=== PATIENT | female | born 1985 | race Caucasian/White ===

== ENCOUNTER 2018-12-25 17:28 | Emergency (ER) | payer OTHER ==
[~2018-12-25] VITALS: Ht 165.1 cm; Wt 93.0 kg
== END 2018-12-25 18:07 | disposition home or self-care (01) ==
LOC: ER 17:28
DX: S06.9X0A Unspecified intracranial injury without loss of consciousness, initial encounter (principal); W22.8XXA Striking against or struck by other objects, initial encounter
CPT/HCPCS: 99283

== ENCOUNTER 2019-02-15 09:53 | Emergency (ER) | payer OTHER ==
[~2019-02-15] VITALS: Ht 165.1 cm; Wt 93.0 kg
[2019-02-15] MEDS ORDERED: CYCL10 PO (10:40)
[2019-02-15] MEDS ORDERED: Ultram50 MG PO (10:40)
== END 2019-02-15 11:12 | disposition home or self-care (01) ==
LOC: ER 09:53
DX: G89.29 Other chronic pain (principal); M54.5 Low back pain; F17.200 Nicotine dependence, unspecified, uncomplicated
CPT/HCPCS: 96372; 99283-25; J1885

== ENCOUNTER 2019-05-07 15:23 | Emergency (ER) | payer OTHER ==
[~2019-05-07] VITALS: Ht 165.1 cm; Wt 91.6 kg
[~2019-05-07 15:23] MED LIST: CYCL10 PO; Ultram50 MG PO
[2019-05-07] MEDS ORDERED: Mobic15 MG PO (16:05)
[2019-05-07] MEDS ORDERED: OMEPRAZOLE20 MG (16:05)
[2019-05-07] MEDS ORDERED: Amoxicillin500 MG PO (16:40)
[2019-05-07] MEDS ORDERED: Norco 5-325 Ta1 EACH PO (16:40)
== END 2019-05-07 17:08 | disposition home or self-care (01) ==
LOC: ER 15:23
DX: K04.7 Periapical abscess without sinus (principal); K21.9 Gastro-esophageal reflux disease without esophagitis; F17.200 Nicotine dependence, unspecified, uncomplicated
CPT/HCPCS: 99282

== ENCOUNTER → 2020-09-19 | Outpatient (CLI) | payer OTHER ==
[~2020-09-19] MED LIST changes: +Amoxicillin500 MG PO; +Mobic15 MG PO; +Norco 5-325 Ta1 EACH PO; +OMEPRAZOLE20 MG
[2020-09-19 14:02] LABS: Candida species (DNA Probe) Negative (NEGATIVE); G. vaginalis (DNA Probe) Positive (NEGATIVE); T. vaginalis (DNA Probe) Negative (NEGATIVE)
== END | disposition home or self-care (01) ==
LOC: LAB SHORT 10:42
PROVIDERS: Family Medicine
DX: B37.3 Candidiasis of vulva and vagina (principal)
CPT/HCPCS: 87480; 87510; 87660

== ENCOUNTER 2020-11-30 13:31 | Emergency (ER) | payer OTHER ==
[~2020-11-30] VITALS: Ht 165.1 cm; Wt 91.6 kg
== END 2020-11-30 15:30 | disposition home or self-care (01) ==
LOC: ER 13:31
DX: M54.5 Low back pain (principal); G89.29 Other chronic pain; F17.210 Nicotine dependence, cigarettes, uncomplicated; Z79.899 Other long term (current) drug therapy
CPT/HCPCS: 96372; 99283-25; J1885

== ENCOUNTER → 2021-01-23 | Outpatient (CLI) | payer OTHER | END | disposition home or self-care (01) | LOC: LAB SHORT 13:39 → LAB 13:39 | DX: N85.8 Other specified noninflammatory disorders of uterus (principal) | CPT/HCPCS: 88305 ==

== ENCOUNTER → 2021-01-23 | Outpatient (CLI) | payer OTHER ==
[2021-01-27 08:09] LABS: CHLAMYDIA TRACHOMATIS, NAA Negative (Negative); HPV 16 Negative (Negative); HPV 18 Negative (Negative); HPV OTHER HR TYPES Negative (Negative)
== END ==
LOC: LAB 08:53 → LAB SHORT 08:53
PROVIDERS: Obstetrics & Gynecology
DX: Z01.419 Encounter for gynecological examination (general) (routine) without abnormal findings (principal); N92.0 Excessive and frequent menstruation with regular cycle
CPT/HCPCS: 87491; 87591; 87624; G0123

== ENCOUNTER 2021-10-26 12:34 | Emergency (ER) | payer OTHER ==
[~2021-10-26] VITALS: Ht 165.1 cm; Wt 81.7 kg
[2021-10-26 14:26] LABS: BASOPHILS ABSOLUTE AUTO 0.02 K/mm3 (0.00-0.23); BASOPHILS PERCENT AUTO 1 % (0-2); EOSINOPHILS PERCENT AUTO 0 % (0-6); Hematocrit 35.3 % (33.0-51.0); Hemoglobin 12.1 g/dL (11.5-16.0); IMMATURE GRAN ABSOLUTE AUTO 0.01 K/mm3 (0.00-0.10); IMMATURE GRAN PERCENT AUTO 0 % (0-1); LYMPHOCYTES ABSOLUTE AUTO 0.27 K/mm3 (0.84-5.20); LYMPHOCYTES PERCENT AUTO 10 % (21-46); MONOCYTES ABSOLUTE AUTO 0.47 K/mm3 (0.16-1.47); MONOCYTES PERCENT AUTO 17 % (4-13); Mean Corpuscular HGB 29.5 pg (26.0-34.0); Mean Corpuscular HGB Conc 34.3 g/dL (31.5-36.5); Mean Corpuscular Volume 86 fL (80-100); Mean Platelet Volume 10.8 fL (9.1-12.4); NEUTROPHILS ABSOLUTE AUTO 1.93 K/mm3 (1.96-9.15); NEUTROPHILS PERCENT AUTO 72 % (41-73); Platelet Count 186 K/mm3 (150-400); RDW Standard Deviation 37.9 fL (35.1-46.3)
[2021-10-26 14:48] LABS: Albumin, Blood 3.4 g/dL (3.4-5.0); Albumin/Globulin Ratio 1.2 (0.8-1.8); Bilirubin, Total 0.2 mg/dL (0.1-1.0); Bun/Creatinine Ratio 9.9 (12.0-20.0); Calcium, Blood 8.3 mg/dL (8.5-10.1); Creatinine, Blood 0.81 mg/dL (0.40-1.00); Globulin, Blood 2.8 g/dL (2.2-4.0); Potassium, Blood 3.4 mmol/L (3.5-5.5); Total Protein, Blood 6.2 g/dL (6.4-8.2)
[2021-10-26 14:58] LABS: Source, Urine Straight Cath
[2021-10-26 15:04] LABS: Appearance, Urine Clear (Clear); Bilirubin, Urine Neg (Neg); Blood, Urine Neg (Neg); Color, Urine Yellow (P-Yellow); Glucose Qualitative, Urine Neg (Neg); Ketones, Urine Neg (Neg); Leukocyte Esterase, Urine Neg (Neg); Nitrite, Urine Neg (Neg); Protein, Urine Neg (Neg); Urobilinogen, Urine NORM (Normal)
[2021-10-26 15:05] LABS: Influenza A, PCR NEGATIVE (NEGATIVE); Influenza B, PCR NEGATIVE (NEGATIVE); Resp Syncytial Virus, PCR NEGATIVE (NEGATIVE)
[2021-10-26 15:06] LABS: SARS-Cov-2 (COVID-19) PCR, MMC POSITIVE (NEGATIVE)
== END 2021-10-26 15:50 | disposition home or self-care (01) ==
LOC: ER 12:34
PROVIDERS: Student in an Organized Health Care Education/Training Program
DX: U07.1 COVID-19 (principal); E87.6 Hypokalemia; R25.2 Cramp and spasm; K21.9 Gastro-esophageal reflux disease without esophagitis; J45.909 Unspecified asthma, uncomplicated; Z79.899 Other long term (current) drug therapy; Z91.09 Other allergy status, other than to drugs and biological substances
CPT/HCPCS: 0241U; 80053; 81003; 81025; 85025; J0780; J1200; J1885; J3475; J7030

== ENCOUNTER 2022-01-02 04:43 | Emergency (ER) | payer OTHER ==
[~2022-01-02] VITALS: Ht 162.6 cm; Wt 83.9 kg
== END 2022-01-02 08:00 | disposition home or self-care (01) ==
LOC: ER 04:43
DX: S61.412A Laceration without foreign body of left hand, initial encounter (principal); K21.9 Gastro-esophageal reflux disease without esophagitis; Z91.09 Other allergy status, other than to drugs and biological substances; W26.0XXA Contact with knife, initial encounter
CPT/HCPCS: 12001; 99282-25

== ENCOUNTER 2023-09-10 10:18 | Day surgery (SDC) | payer OTHER ==
[~2023-09-10] VITALS: Ht 165.1 cm; Wt 99.8 kg
[~2023-09-10 10:18] MED LIST changes: +ALBU90OI INH; +AVIANE-28 TABL1 EACH PO; +Celexa20 MG PO; +FLUT1DIS2 INH; +IBUP800 PO; -OMEPRAZOLE20 MG; +OMEPRAZOLE20 MG PO; +Ropivacaine 0.5% HCl/Pf 5 MG/ML 20ML VIAL ONE
[2023-09-10] MEDS ORDERED: AVIANE-28 TABL1 EACH (11:16)
[2023-09-10] MEDS ORDERED: FentaNYL Citrate 50 MCG/ML 2 ML Injection ONE ×2 (11:29→13:02)
[2023-09-10] MEDS ORDERED: Midazolam HCl 1MG / ML 2ML Vial ONE (11:30)
[2023-09-10] MEDS ORDERED: Lactated Ringer's 1,000 ML IV ONE ×2 (11:35→13:57)
[2023-09-10] MEDS ORDERED: CeFAZolin Sodium 2,000 MG VIAL ONE (11:40)
[2023-09-10] MEDS ORDERED: NS 50 ML IV ONE (11:40)
[2023-09-10 13:17] VITALS: BP 111/71
== END 2023-09-10 13:28 | disposition home or self-care (01) ==
LOC: ORSCSDS 10:18
PROVIDERS: Orthopaedic Surgery
PROC: 0LB40ZZ Excision of Left Upper Arm Tendon, Open Approach (ICD-10-PCS; principal; 2023-09-10 11:30)
DX: M67.441 Ganglion, right hand (principal); J45.909 Unspecified asthma, uncomplicated; E66.9 Obesity, unspecified; Z68.36 Body mass index [BMI] 36.0-36.9, adult; Z87.891 Personal history of nicotine dependence; Z79.899 Other long term (current) drug therapy
CPT/HCPCS: 88304; J0690; J2250; J2795; J3010; J7120

== ENCOUNTER → 2023-10-10 | Outpatient (CLI) | payer OTHER ==
[~2023-10-10] MED LIST changes: +AVIANE-28 TABL1 EACH; -Ropivacaine 0.5% HCl/Pf 5 MG/ML 20ML VIAL ONE
[2023-10-10 18:47] LABS: BASOPHILS ABSOLUTE AUTO 0.07 K/mm3 (0.00-0.23); BASOPHILS PERCENT AUTO 1 % (0-2); EOSINOPHILS ABSOLUTE AUTO 0.03 K/mm3 (0.00-0.68); EOSINOPHILS PERCENT AUTO 0 % (0-6); Hematocrit 39.6 % (33.0-51.0); Hemoglobin 12.8 g/dL (11.5-16.0); IMMATURE GRAN ABSOLUTE AUTO 0.02 K/mm3 (0.00-0.10); IMMATURE GRAN PERCENT AUTO 0 % (0-1); LYMPHOCYTES ABSOLUTE AUTO 3.26 K/mm3 (0.84-5.20); LYMPHOCYTES PERCENT AUTO 33 % (21-46); MONOCYTES ABSOLUTE AUTO 0.95 K/mm3 (0.16-1.47); MONOCYTES PERCENT AUTO 10 % (4-13); Mean Corpuscular HGB 26.8 pg (26.0-34.0); Mean Corpuscular HGB Conc 32.3 g/dL (31.5-36.5); Mean Corpuscular Volume 83 fL (80-100); Mean Platelet Volume 10.4 fL (9.1-12.4); NEUTROPHILS ABSOLUTE AUTO 5.48 K/mm3 (1.96-9.15); NEUTROPHILS PERCENT AUTO 56 % (41-73); Platelet Count 293 K/mm3 (150-400); RDW Coefficient Variation 12.9 % (11.7-14.2); RDW Standard Deviation 39.2 fL (35.1-46.3); Red Blood Cell Count 4.78 M/mm3 (3.80-5.20); White Blood Cell Count 9.81 K/mm3 (4.00-11.30)
== END | disposition home or self-care (01) ==
LOC: LAB SHORT 16:38 → LAB 16:38
PROVIDERS: Physician Assistant
DX: M79.644 Pain in right finger(s) (principal)
CPT/HCPCS: 85025

== ENCOUNTER → 2024-03-21 | Outpatient (CLI) | payer OTHER ==
[2024-03-22 13:20] LABS: Candida glabrata-krusei, PCR NOT DETECTED (NOT DETECT)
[2024-03-22 13:51] LABS: Bacterial Vaginosis PCR Positive (NEGATIVE); Candida Group, PCR DETECTED (NOT DETECT)
== END ==
LOC: LAB SHORT 11:08 → LAB 11:08
PROVIDERS: Physician Assistant
DX: N89.8 Other specified noninflammatory disorders of vagina (principal)
CPT/HCPCS: 87481; 87661; 87801

== ENCOUNTER 2024-07-27 00:16 | Emergency (ER) | payer OTHER ==
[~2024-07-27] VITALS: Ht 165.1 cm; Wt 90.7 kg
[2024-07-27 00:53] LABS: BASOPHILS ABSOLUTE AUTO 0.07 K/mm3 (0.00-0.23); BASOPHILS PERCENT AUTO 1 % (0-2); EOSINOPHILS ABSOLUTE AUTO 0.11 K/mm3 (0.00-0.68); EOSINOPHILS PERCENT AUTO 1 % (0-6); Hemoglobin 12.6 g/dL (11.5-16.0); IMMATURE GRAN ABSOLUTE AUTO 0.02 K/mm3 (0.00-0.10); IMMATURE GRAN PERCENT AUTO 0 % (0-1); LYMPHOCYTES ABSOLUTE AUTO 3.28 K/mm3 (0.84-5.20); LYMPHOCYTES PERCENT AUTO 41 % (21-46); MONOCYTES ABSOLUTE AUTO 0.68 K/mm3 (0.16-1.47); MONOCYTES PERCENT AUTO 9 % (4-13); Mean Corpuscular HGB 29.7 pg (26.0-34.0); Mean Corpuscular HGB Conc 34.1 g/dL (31.5-36.5); Mean Corpuscular Volume 87 fL (80-100); Mean Platelet Volume 9.8 fL (9.1-12.4); NEUTROPHILS ABSOLUTE AUTO 3.76 K/mm3 (1.96-9.15); NEUTROPHILS PERCENT AUTO 47 % (41-73); Platelet Count 274 K/mm3 (150-400); RDW Coefficient Variation 12.9 % (11.7-14.2); RDW Standard Deviation 40.8 fL (35.1-46.3); Red Blood Cell Count 4.24 M/mm3 (3.80-5.20); White Blood Cell Count 7.92 K/mm3 (4.00-11.30)
[2024-07-27] MEDS ORDERED: ATOMOXETINE HCL80 M3 PO (01:07)
[2024-07-27] MEDS ORDERED: CELEXA10 MG (01:08)
[2024-07-27 01:14] LABS: Albumin, Blood 3.7 g/dL (3.4-5.0); Albumin/Globulin Ratio 1.1 (0.8-1.8); Bilirubin, Total 0.2 mg/dL (0.1-1.0); Bun/Creatinine Ratio 14.9 (12.0-20.0); Calcium, Blood 9.1 mg/dL (8.5-10.1); Creatinine, Blood 0.81 mg/dL (0.40-1.00); Globulin, Blood 3.3 g/dL (2.2-4.0); Potassium, Blood 3.7 mmol/L (3.5-5.5)
[2024-07-27 02:00] VITALS: BP 123/79
[2024-07-27 02:18] LABS: Source, Urine Clean Catch
[2024-07-27 02:22] LABS: Bilirubin, Urine Neg (Neg); Blood, Urine Neg (Neg); Glucose Qualitative, Urine Neg (Neg); Ketones, Urine Neg (Neg); Leukocyte Esterase, Urine Neg (Neg); Nitrite, Urine Neg (Neg); Protein, Urine Neg (Neg); Specific Gravity, Urine 1.025 (1.003-1.022); Urobilinogen, Urine 1+ (Normal)
[2024-07-27 02:31] LABS: Appearance, Urine Clear (Clear); Color, Urine Yellow (P-Yellow)
[2024-07-27] MEDS ORDERED: Diazepam 5 MG / ML 2ML SYR IV ONE (03:20)
[2024-07-27] MEDS ORDERED: Ketorolac Tromethamine 30mg Vial IV ONE (03:20)
[2024-07-27] MEDS ORDERED: NS 1,000 ML IV SCH (03:20)
== END 2024-07-27 04:57 | disposition home or self-care (01) ==
LOC: ER 00:16
PROVIDERS: Emergency Medicine; Student in an Organized Health Care Education/Training Program
DX: M62.830 Muscle spasm of back (principal); G89.29 Other chronic pain; R73.9 Hyperglycemia, unspecified; J45.909 Unspecified asthma, uncomplicated; K21.9 Gastro-esophageal reflux disease without esophagitis; Z68.33 Body mass index [BMI] 33.0-33.9, adult; Z79.51 Long term (current) use of inhaled steroids; Z79.899 Other long term (current) drug therapy; Z91.030 Bee allergy status; Z91.048 Other nonmedicinal substance allergy status
CPT/HCPCS: 80053; 81003; 84703; 85025; 96374; 96375; 99283-25; J1885; J3360; J7030

== ENCOUNTER 2024-09-30 20:54 | Emergency (ER) | payer OTHER ==
[~2024-09-30] VITALS: Ht 165.1 cm; Wt 95.2 kg
[~2024-09-30 20:54] MED LIST changes: +ATOMOXETINE HCL80 M3 PO; +CELEXA10 MG
[2024-09-30 21:08] VITALS: BP 128/74
[2024-09-30] MEDS ORDERED: RX Prepack 6 Tabs Oxycodone 5mg UD ONE (22:35)
[2024-09-30] MEDS ORDERED: Ketorolac Tromethamine 30mg Vial IM ONE (22:35)
[2024-09-30] MEDS ORDERED: Cyclobenzaprine5 MG PO (22:40)
== END 2024-09-30 22:45 | disposition home or self-care (01) ==
LOC: ER 20:54
DX: S03.01XA Dislocation of jaw, right side, initial encounter (principal); J45.909 Unspecified asthma, uncomplicated; Z91.030 Bee allergy status; Z79.899 Other long term (current) drug therapy; X58.XXXA Exposure to other specified factors, initial encounter
CPT/HCPCS: 96372; 99283-25; A9270; J1885

== ENCOUNTER → 2024-12-15 | Outpatient (CLI) | payer OTHER ==
[~2024-12-15] MED LIST changes: +Cyclobenzaprine5 MG PO
[2024-12-15 13:03] LABS: Bacterial Vaginosis PCR Negative (NEGATIVE); Candida Group, PCR NOT DETECTED (NOT DETECT); Candida glabrata-krusei, PCR NOT DETECTED (NOT DETECT)
== END | disposition home or self-care (01) ==
LOC: LAB SHORT 10:38 → LAB 10:38
PROVIDERS: Family Medicine
DX: B37.31 Acute candidiasis of vulva and vagina (principal)
CPT/HCPCS: 81515; 87624; 88142

== ENCOUNTER 2025-05-14 23:48 | Emergency (ER) | payer OTHER ==
[~2025-05-14] VITALS: Ht 165.1 cm; Wt 93.0 kg
[2025-05-15 01:07] LABS: BASOPHILS ABSOLUTE AUTO 0.10 K/mm3 (0.00-0.23); BASOPHILS PERCENT AUTO 1 % (0-2); EOSINOPHILS ABSOLUTE AUTO 0.21 K/mm3 (0.00-0.68); EOSINOPHILS PERCENT AUTO 2 % (0-6); Hematocrit 35.1 % (33.0-51.0); Hemoglobin 11.7 g/dL (11.5-16.0); IMMATURE GRAN ABSOLUTE AUTO 0.02 K/mm3 (0.00-0.10); IMMATURE GRAN PERCENT AUTO 0 % (0-1); LYMPHOCYTES ABSOLUTE AUTO 3.43 K/mm3 (0.84-5.20); LYMPHOCYTES PERCENT AUTO 39 % (21-46); MONOCYTES ABSOLUTE AUTO 0.83 K/mm3 (0.16-1.47); MONOCYTES PERCENT AUTO 9 % (4-13); Mean Corpuscular HGB Conc 33.3 g/dL (31.5-36.5); Mean Corpuscular Volume 85 fL (80-100); NEUTROPHILS ABSOLUTE AUTO 4.21 K/mm3 (1.96-9.15); NEUTROPHILS PERCENT AUTO 48 % (41-73); NRBC ABSOLUTE 0.00 K/mm3 (0.00-0.02); NRBC Auto 0.0 /100 WBC (0.0-0.2); Platelet Count 294 K/mm3 (150-400); RDW Coefficient Variation 11.9 % (11.7-14.2); RDW Standard Deviation 37.2 fL (35.1-46.3)
[2025-05-15] MEDS ORDERED: Ketorolac Tromethamine 15mg Vial IV ONE (01:15)
[2025-05-15 01:29] LABS: Alanine Aminotransfer (ALT/SGP 32.0 U/L (12-78); Albumin, Blood 3.6 g/dL (3.4-5.0); Albumin/Globulin Ratio 1.2 (0.8-1.8); Anion Gap 10.0 mmol/L (3-11); Aspartate Aminotrans (AST/SGOT 20.0 U/L (12-37); Bilirubin, Total 0.1 mg/dL (0.1-1.0); Blood Urea Nitrogen 13.0 mg/dL (8-24); CO2, Blood 25.0 mmol/L (21-32); Calcium, Blood 8.8 mg/dL (8.5-10.1); Chloride, Blood 107.0 mmol/L (98-108); Creatinine, Blood 0.74 mg/dL (0.40-1.00); Globulin, Blood 3.1 g/dL (2.2-4.0); Glucose, Blood 114.0 mg/dL (70-99); Potassium, Blood 3.8 mmol/L (3.5-5.5); Sodium, Blood 138.0 mmol/L (136-145); Total Protein, Blood 6.7 g/dL (6.4-8.2)
[2025-05-15 02:45] VITALS: BP 113/59
[2025-05-15 03:04] LABS: Source, Urine Clean Catch
[2025-05-15 03:06] LABS: Bilirubin, Urine Neg (Neg); Glucose Qualitative, Urine Neg (Neg); Ketones, Urine Neg (Neg); Leukocyte Esterase, Urine 1+ (Neg); Protein, Urine 2+ (Neg); Specific Gravity, Urine 1.025 (1.003-1.022); Urobilinogen, Urine NORM (Normal)
[2025-05-15 03:13] LABS: Color, Urine Yellow (P-Yellow)
[2025-05-15 03:14] LABS: Red Blood Cells, Urine TNTC /hpf (0-2)
== END 2025-05-15 03:23 | disposition home or self-care (01) ==
LOC: ER 23:48
PROVIDERS: Student in an Organized Health Care Education/Training Program
DX: N94.6 Dysmenorrhea, unspecified (principal); M54.50 Low back pain, unspecified; J45.909 Unspecified asthma, uncomplicated; K21.9 Gastro-esophageal reflux disease without esophagitis; Z91.030 Bee allergy status; Z91.048 Other nonmedicinal substance allergy status; Z79.899 Other long term (current) drug therapy; Z79.51 Long term (current) use of inhaled steroids
CPT/HCPCS: 80053; 81001; 81025; 85025; 87086; 96374; 99284-25; A9270; J1885